=== PATIENT | female | born 1990 | race Asian ===

== ENCOUNTER 2024-10-04 10:55 | Outpatient (AMB) | payer BC, SELFPAY ==
--- NOTE | 2024-10-04 10:22 | AMB.OBINITIA ---
Vital Signs 10/04/24 10:28 Height 1.47 m Height Method Stated Weight 53.24 kg Weight Measurement Method Standing Scale BMI 24.5 BP 113/76 Blood Pressure Source Automatic Cuff Blood Pressure Location Right Upper Arm Position Sitting Respiration 17 Pulse 58 L Pulse Source Monitor Temp 98.0 F Temp Source Temporal Artery Scan Pulse Oximetry (%) 98 Oxygen Delivery Method Room Air Allergies/Home Meds Allergies & Medications Allergies No Known Allergies Allergy (Verified 10/04/24 10:29) Intake Visit Data Collection New Patient or Established: New Patient (never been to [facility]) Reason for Visit:: OBI Seen by Clinical Staff ONLY (RN/MA): No Supervisor Cereal Required: No Do You Feel Safe at Home: Yes Authorities Contacted: N/A PCP or OBGYN visit in last 3 months: No Hx Now: Yes Are you currently on any form of Control: No Last menstrual period: 07/27/24 Pain Present Currently: No Pain Scale Used: Leal-Andersen/Numerical Pain scale:: 0 Smoking Status Smoking Status: Never smoker Questionnaires Covid-19 Vaccine Questionnaire Has patient been vacinated for Covid-19 Have you been vacinated for Covid-19: No PHQ-9 PHQ-2 Over the last 2 weeks, how often have you been bothered by any of the following problems? 1. Little interest or pleasure in doing things: not at all 2. Feeling down, depressed, or hopeless: not at all Total score: 0 PHQ-9 3. Trouble falling or staying asleep, or sleeping too much: Not at all 4. Feeling tired or having little energy: Not at all 5. Poor appetite or overeating: Not at all 6. Feeling bad about yourself - or that you are a failure or have let yourself or your family down: Not at all 7. Trouble concentrating on things, such as reading the newspaper or watching television: Not at all 8. Moving or speaking so slowly that other people could have noticed? - Or the opposite - being so fidgety or restless that you have been moving around a lot more than usual: not at all 9. Thoughts that you would be better off or of hurting yourself in some way: Not at all Total score: 0 If you checked off any problems, how difficult have these problems made it for you to do your work, take care of things at home, or get along with other people?: not difficult at all Source: Developed by Drs. Robert Smith, Sanjuana Beckwith, Bret Sharpe and colleagues, with an educational douglas from [employer]. Depression screen completed yes Social History Living Situation History Marital Status: Lives With: Family Housing: House Housing Other:: Pt has 9-y/o girl from prev. spouse. Works in a [employer]. 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 Patient went natural. She went into labor at 37 weeks on her own. She stated labor was about 2-1/2 hours and she did not push long. She did not get an epidural and denied any problems with that or . That baby was from a previous relationship. Her new is with her today. He does not have any other children. 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 Last menstrual period was 07/27/24. She denies any past medical history or surgical history. 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 She did not push long and did not get an epidural she denies any complications. This was from another relationship. Other Relevant History: Patient has slightly elevated cholesterol. OB Initial Visit OB Flowsheet OB Flowsheet Initial Weight: Not Recorded Date <del>?</del> EGA Weight BP Alb Glu CTX Pres Fundal ht FHR Mov Dilation Station Effacement Hx Notes Visit Note 10/04/24 <del>?</del> 9w 6d 53.24 kg 113/76 10 154 New OB. Patient just had a Pap. Labs and official ultrasound ordered. Patient desires NIPT. Menstrual History Menstrual reliability: definite Flow: normal Menstrual regularity: regular Monthly: Yes Age at menarche: 10 On control pills at conception: Yes OB History : 2 Para: 1 Hx # Pregnancies: 0 Hx Total # of Abortions (Spontaneous & Elective): 0 # of Living Children: 1 Delivery History 1st : Child's name: JAN LEDEZMA date: 09/06[birth year] sex: female Gestational age at delivery (weeks): 37 Delivery type: vaginal weight (lbs): 2721.554 g weight (oz): 85.049 g Delivery complications: None History of depression before or after : No Infection History & Risk Evaluation History of STDs: none HIV risk evaluation: low risk Hepatitis B risk evaluation: low risk Patient or partner has history of Genital Herpes: No Varicella/chicken pox status: immunized Genetic Screening & History Genetic Screening/Teratology Counseling - Includes patient, baby's father, or anyone in either family with: 1. Patient's age 35 years or older as of estimated date of delivery: Yes 2. Thalassemia (Setswana, Italian, Mediterranean, or Background); MCV less than 80: No 3. Neural Tube Defect (Meningomyelocele, Spina Bifida, or Anencephaly): No 4. Congenital Heart Defect: No 5. Down Syndrome: No 6. Ian-Sachs (Ashkenazi Yazdanism, Cajun, Occitan [place]): No 7. Vishal Disease (Ashkenazi Yazdanism): No 8. Familial Dysautonomia (Ashkenazi Yazdanism): No 9. Sickle Cell Disease or Trait (): No 10. Hemophilia or other blood disorders: No 11. Muscular Dystrophy: No 12. Cystic Fibrosis: No 13. Pisek's Chorea: No 14. Mental Retardation/Autism: No 15. Other inherited genetic or chromosomal disorder: No 16. Maternal Metabolic Disorder (EG,TYPE 1 Diabetes, PKU): No 17. Patient or baby's father had a child with defects not listed above: No 18. Recurrent loss or a stillbirth: No 19. Medications (including supplements, vitamins, herbs or otc drugs)/illicit/recreational drugs/alcohol since last menstrual period: No 20. Any other: No Infection History 1. Live with someone with TB or exposed to TB: No 2. Rash or viral illness since last menstrual period: No 3. Hepatitis B,C: No Other (see comments) Source: [employer] Office Procedures OB Clinic LOC & Office Proc's Nursing/Assessment Patient Status: Initial/New Patient OB Clinic Nursing Assessment: Medication Reconciliation, Update PMH in EMR and Vital Signs OB Clinic Coordination of Care: Complex Care and Chronic Disease 1-5, Consent,records obtained, informed consent, Education Simp Pt/Fam, Lab and Imaging orders, Results/Orders obtained and Staff clarify orders Special Needs: Heart tones New Patient Charge New Patient Point Assignment: [id number] New Patient 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 Will refer to Dr. Arthur for level 2 ultrasound at 20 weeks. Additional Plan Follow Up: 4 Weeks
[2024-10-04 10:28] VITALS: BP 113/76; PULSE 58; RESP 17; TEMP 36.7; O2SAT 98; BMI 24.5
== END 2024-10-04 11:19 | disposition home or self-care (01) ==
PROVIDERS: PCP Family Medicine; Referring Provider Family Medicine; Supervising Provider Obstetrics & Gynecology; Visit Provider Obstetrics & Gynecology
DX: O09.521 Supervision of elderly multigravida, first trimester (principal); Z3A.09 9 weeks gestation of pregnancy
CPT/HCPCS: 99204; G0463

== ENCOUNTER → 2024-10-04 | Outpatient (CLI) | payer BC, SELFPAY ==
[2024-10-04 11:55] LABS: Collection Type, Urine Clean Catch; Misc Send Out* See Sep Rpt
[2024-10-04 12:09] LABS: Basophils % (Auto) 0 % (0-2.5); Eosinophils # (Auto) 0.1 Thou/mm3 (0.0-0.5); Eosinophils % (Auto) 1 % (0-10); Hematocrit 36.2 % (36.0-46.0); Hemoglobin 13.1 g/dL (12.0-16.0); Immature Granulocytes % (Auto) 1 % (0-0); Immature Granulocytes Auto 0.07 Thou/mm3 (0.00-0.00); Lymphocytes # (Auto) 2.8 Thou/mm3 (1.0-4.8); Lymphocytes % (Auto) 25 % (10-50); Mean Corpuscular HGB Conc 36.2 g/dl (31.0-37.0); Mean Corpuscular Hemoglobin 30.3 pg (25.0-35.0); Mean Corpuscular Volume 84 fL (80-100); Monocytes # (Auto) 0.5 Thou/mm3 (0.0-0.8); Monocytes % (Auto) 5 % (0-12); Neutrophils # (Auto) 7.9 Thou/mm3 (1.8-7.7); Neutrophils % (Auto) 69 % (37-80); Nucleated Red Blood Cell % 0 /100 WBC (0); Platelet Count 275 Thou/mm3 (140-440); RDW Standard Deviation 38.8 fL (36.4-46.3); Red Blood Count 4.33 Miln/mm3 (4.00-5.20); White Blood Count 11.5 Thou/mm3 (3.6-11.0)
[2024-10-04 12:22] LABS: Bilirubin,Urine Negative (Negative); Blood,Urine 1+ (Negative); Clarity,Urine Clear (Clear/Hazy); Color,Urine Lt-Yellow (Lt Yel-Yel); Glucose, Urine Negative (Negative); Ketones,Urine Trace (Negative); Leukocyte Esterase,Urine Negative (Negative); Nitrite,Urine Negative (Negative); PH,Urine 6.5 (5.0-7.0); Protein,Urine Negative (Neg - Trace); RBC,Urine 4 /hpf (0-3); Specific Gravity,Urine 1.012 (1.001-1.035); Squamous Epithelial Cell,Urine 1 /hpf (0-5); Urobilinogen,Urine Negative mg/dL (0.0-1.0); WBC,Urine 1 /hpf (0-5)
[2024-10-04 12:46] LABS: HIV (1&2) Antibody Rapid Non-Reactive
[2024-10-04 13:30] LABS: Hepatitis B Surface Antigen Non Reactive (Non React); Hepatitis C Antibody Non Reactive (Non React); Rubella, IgG Antibody Reactive (Immune)
[2024-10-04 15:29] LABS: Chlamydia trachomatis PCR Negative (Not Detect); Neisseria Gonorrhoeae DNA PCR Negative (Not Detect); Trichomonas Negative (Negative)
[2024-10-04 18:39] LABS: Syphilis Nonreactive (Nonreactive)
[2024-10-09 07:09] LABS: Sm Antibody* <1.0 NEG AI (<1.0 NEGATIVE)
== END | disposition home or self-care (01) ==
LOC: COPL 11:29
PROVIDERS: PCP Family Medicine; Referring Provider Obstetrics & Gynecology; Visit Provider Obstetrics & Gynecology
DX: Z01.89 Encounter for other specified special examinations (principal)
CPT/HCPCS: 36415; 81001; 85025; 86235; 86703; 86762; 86780; 86803; 86850; 86900; 86901; 87340; 87491; 87591; 87661

== ENCOUNTER → 2024-10-12 | Outpatient (CLI) | payer BC, SELFPAY ==
--- NOTE | 2024-10-12 15:00 | XR_ITS ---
Examination: OB Transvaginal ultrasound of the pelvis, complete Technique: Transvaginal sonographic images pelvis performed using milner scale imaging Exam date and time: October 12, 2024 1506 hours INDICATIONS: Supervision of normal FINDINGS: Uterus 10.9 cm, CRL 4.9 cm corresponds to 11 weeks 4 days gestational age Cardiac motion 169 bpm Right ovary 4.0 cm arterial flow 26 mm cyst Left ovary 3.0 cm arterial flow IMPRESSION: Viable intrauterine gestation 11 weeks 4 days.
== END | disposition home or self-care (01) ==
PROVIDERS: PCP Family Medicine; Referring Provider Obstetrics & Gynecology; Visit Provider Obstetrics & Gynecology
DX: Z34.91 Encounter for supervision of normal pregnancy, unspecified, first trimester (principal); Z3A.11 11 weeks gestation of pregnancy
CPT/HCPCS: 76817

== ENCOUNTER 2024-11-10 09:49 | Outpatient (AMB) | payer BC, SELFPAY ==
[2024-11-10 10:03] VITALS: BP 116/75; PULSE 86; RESP 17; TEMP 36.8; O2SAT 98; BMI 24.9
--- NOTE | 2024-11-10 10:03 | OBCLNT_ITS ---
Vital Signs 11/10/24 10:03 Height 1.47 m Height Method Measured Weight 54.091 kg Weight Measurement Method Standing Scale BMI 24.9 BP 116/75 Blood Pressure Source Automatic Cuff Blood Pressure Location Right Upper Arm Position Sitting Respiration 17 Pulse 86 Pulse Source Monitor Temp 98.3 F Temp Source Temporal Artery Scan Pulse Oximetry (%) 98 Oxygen Delivery Method Room Air Allergies/Home Meds Allergies & Medications Allergies No Known Allergies Allergy (Verified 11/10/24 10:04) Medication Reconciliation vits no.126-ferrous fum 28 mg iron-folic acid 800 mcg tablet (Classic ) tab PO 11/10/24 [History Confirmed 11/10/24] Intake Visit Data Collection New Patient or Established: Established Patient (seen at [facility] within 3 years) Reason for Visit:: OBC Consent obtained for Telemed Visit: No Seen by Clinical Staff ONLY (RN/MA): No Community Health Coordinator Required: No Do You Feel Safe at Home: Yes Authorities Contacted: N/A PCP or OBGYN visit in last 3 months: Yes Date of Last PCP or OBGYN visit: 10/04/24 Hx Now: Yes Are you currently on any form of Control: No Pain Present Currently: No Pain Scale Used: Leal-Andersen/Numerical Pain scale:: 0 Smoking Status Smoking Status: Never smoker Questionnaires Covid-19 Vaccine Questionnaire Has patient been vacinated for Covid-19 Have you been vacinated for Covid-19: Yes PHQ-9 PHQ-2 Over the last 2 weeks, how often have you been bothered by any of the following problems? 1. Little interest or pleasure in doing things: not at all PHQ-9 8. Moving or speaking so slowly that other people could have noticed? - Or the opposite - being so fidgety or restless that you have been moving around a lot more than usual: not at all Source: Developed by Drs. Robert Smith, Sanjuana Beckwith, Bret Sharpe and colleagues, with an educational douglas from [employer]. Social History Living Situation History Lives With: Family Housing: House Housing Other:: Pt has 9-y/o girl from prev. spouse. 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 Care OB Visit Log OB Flowsheet Initial Weight: 53 kg Date -?-?-?-?-?-?-?-?-?-?-?-?- EGA Weight BP Alb Glu CTX Pres Fundal ht FHR Mov Dilation Station Effacement Hx Notes Visit Note 10/04/24 -?-?-?-?-?-?-?-?-?-?-?-?- 9w 6d 53.24 kg (+240.404 g) 113/76 10 154 New OB. Patient just had a Pap. Labs and official ultrasound ordered. Patient desires NIPT. 11/10/24 -?-?-?-?-?-?-?-?-?-?-?-?- 15w 1d 54.091 kg (+1090.89 g) 116/75 15 132 absent No vaginal bleeding no cramping. labs reviewed. Declined NIPT. Will have level 2 ultrasound. KI Calculator Estimated Delivery Date Method Current WG Current Estimate 05/03/25 LMP (Certain) 15w 3d Other Estimates 04/30/25 Ultrasound #1 15w 6d Expected Delivery Route/Plan -0-0-1 x 1 9 years ago [facility] Labs: A+/Ab-/RI/RPR NR/HIV-/HepC-/HepBSag-/GC-/Chlam- /Urine cx-/Done at [facility] Specific Issue/Plans AMA: Declines NIPT For level 2 ultrasound Recommended baby aspirin Office Procedures OB Clinic LOC & Office Proc's Nursing/Assessment Patient Status: Established Patient OB Clinic Nursing Assessment: Medication Reconciliation, Update PMH in EMR and Vital Signs OB Clinic Coordination of Care: Complex Care/Chronic Disease 5 or more, Consent,records obtained, informed consent, Education Simp Pt/Fam and 4+ Authorizations needed Special Needs: Heart tones Established Patient Charge Established Patient Point Assignment: 140 Established Patient Point Charge: EP Level 5 (160-above) Assessment & Plan Diagnosis / Problem List (1) AMA (advanced maternal age) multigravida 35+: Status: Acute Qualifiers: Trimester: first trimester Qualified Code(s): O09.521 - Supervision of elderly multigravida, first trimester Assessment and Plan: Declined NIPT. Baby ASA. Level II US requested (2) : Status: Acute Qualifiers: Weeks of gestation: 14 weeks Qualified Code(s): Z3A.14 - 14 weeks gestation of
== END 2024-11-10 10:54 | disposition home or self-care (01) ==
LOC: HODSOBC 09:49
PROVIDERS: PCP Family Medicine; Referring Provider Family Medicine; Supervising Provider Obstetrics & Gynecology; Visit Provider Obstetrics & Gynecology
DX: O09.522 Supervision of elderly multigravida, second trimester (principal); Z3A.15 15 weeks gestation of pregnancy; Z53.29 Procedure and treatment not carried out because of patient's decision for other reasons
CPT/HCPCS: 99215; G0463

== ENCOUNTER 2024-12-11 14:59 | Outpatient (AMB) | payer BC, SELFPAY ==
[2024-12-11 15:02] VITALS: BP 119/73; PULSE 97; RESP 18; TEMP 36.8; O2SAT 97; BMI 26.0
--- NOTE | 2024-12-11 15:02 | OBCLNT_ITS ---
Vital Signs 12/11/24 15:02 Height 1.47 m Height Method Measured Weight 56.245 kg Weight Measurement Method Standing Scale BMI 26.0 BP 119/73 Blood Pressure Source Automatic Cuff Blood Pressure Location Left Upper Arm Position Sitting Respiration 18 Pulse 97 Pulse Source Monitor Temp 98.2 F Temp Source Oral Pulse Oximetry (%) 97 Oxygen Delivery Method Room Air Allergies/Home Meds Allergies & Medications Allergies No Known Allergies Allergy (Verified 12/11/24 15:08) Medication Reconciliation vits no.126-ferrous fum 28 mg iron-folic acid 800 mcg tablet (Classic ) tab PO 11/10/24 [History Confirmed 12/11/24] Intake Visit Data Collection New Patient or Established: Established Patient (seen at [facility] within 3 years) Reason for Visit:: CARE Seen by Clinical Staff ONLY (RN/MA): No Tester Operator Required: No Do You Feel Safe at Home: Yes Authorities Contacted: N/A PCP or OBGYN visit in last 3 months: Yes Hx Now: Yes Are you currently on any form of Control: No Pain Present Currently: No Pain Scale Used: Leal-Andersen/Numerical Pain scale:: 0 Smoking Status Smoking Status: Never smoker Questionnaires Covid-19 Vaccine Questionnaire Has patient been vacinated for Covid-19 Have you been vacinated for Covid-19: Yes PHQ-9 PHQ-2 Over the last 2 weeks, how often have you been bothered by any of the following problems? 1. Little interest or pleasure in doing things: not at all 2. Feeling down, depressed, or hopeless: not at all Total score: 0 PHQ-9 3. Trouble falling or staying asleep, or sleeping too much: Not at all 4. Feeling tired or having little energy: Not at all 5. Poor appetite or overeating: Not at all 6. Feeling bad about yourself - or that you are a failure or have let yourself or your family down: Not at all 7. Trouble concentrating on things, such as reading the newspaper or watching television: Not at all 8. Moving or speaking so slowly that other people could have noticed? - Or the opposite - being so fidgety or restless that you have been moving around a lot more than usual: not at all 9. Thoughts that you would be better off or of hurting yourself in some way: Not at all Total score: 0 Source: Developed by Drs. Robert Smith, Sanjuana Beckwith, Bret Sharpe and colleagues, with an educational douglas from [employer]. 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 spouse. 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 Patient just had a Pap. Labs and official ultrasound ordered. Patient desires NIPT. 11/10/24 -?-?-?-?-?-?-?-?-?-?-?-?- 15w 1d 54.091 kg (+1090.89 g) 116/75 15 132 absent No vaginal bleeding no cramping. labs reviewed. Declined NIPT. Will have level 2 ultrasound. 12/11/24 -?-?-?-?-?-?-?-?-?-?-?-?- 19w 4d 56.245 kg (+3245.454 g) 119/73 unknown 19 145 active No vaginal bleeding or loss of fluids. Patient feels flutters Has level 2 ultrasound scheduled later this week. Will have a gender reveal. Will place gender in an envelope. 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 This is his first baby. 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 Office Procedures OB Clinic LOC & Office Proc's Nursing/Assessment Patient Status: Established Patient OB Clinic Nursing Assessment: Medication Reconciliation, Update PMH in EMR and Vital Signs OB Clinic Coordination of Care: AMA, Complex Care and Chronic Disease 1-5, Consent,records obtained, informed consent, Education Simp Pt/Fam, Lab and Imaging orders, Results/Orders obtained and Staff clarify orders Special Needs: Heart tones Established Patient Charge Established Patient Point Assignment: 155 Established Patient Point Charge: EP Level 4 (120-155) Assessment & Plan Diagnosis / Problem List (1) AMA (advanced maternal age) multigravida 35+: Status: Acute Qualifiers: Trimester: first trimester Qualified Code(s): O09.521 - Supervision of elderly multigravida, first trimester Plan: Declined NIPT. Has level [address] Arthur. Baby aspirin. (2) : Status: Acute Qualifiers: Weeks of gestation: 19 weeks Qualified Code(s): Z3A.19 - 19 weeks gestation of Additional Plan Follow Up: 4 Weeks
== END 2024-12-11 16:26 | disposition home or self-care (01) ==
LOC: HODSOBC 14:59
PROVIDERS: Supervising Provider Obstetrics & Gynecology; Visit Provider Obstetrics & Gynecology
DX: O09.522 Supervision of elderly multigravida, second trimester (principal); Z3A.19 19 weeks gestation of pregnancy; Z53.29 Procedure and treatment not carried out because of patient's decision for other reasons
CPT/HCPCS: 99214; G0463

== ENCOUNTER 2025-01-12 14:54 | Outpatient (AMB) | payer BC, SELFPAY ==
--- NOTE | 2025-01-12 15:07 | OBCLNT_ITS ---
Vital Signs 01/12/25 15:08 Height 1.47 m Height Method Stated Weight 57.323 kg Weight Measurement Method Standing Scale BMI 26.5 BP 118/76 Blood Pressure Source Automatic Cuff Blood Pressure Location Left Upper Arm Position Sitting Respiration 18 Pulse 104 H Pulse Source Monitor Temp 98.1 F Temp Source Oral Pulse Oximetry (%) 97 Oxygen Delivery Method Room Air Allergies/Home Meds Allergies & Medications Allergies No Known Allergies Allergy (Verified 01/12/25 15:08) Medication Reconciliation vits no.126-ferrous fum 28 mg iron-folic acid 800 mcg tablet (Classic ) tab PO 11/10/24 [History Confirmed 01/12/25] Intake Visit Data Collection New Patient or Established: Established Patient (seen at [facility] within 3 years) Reason for Visit:: CARE Seen by Clinical Staff ONLY (RN/MA): No Soa Architect Required: No Do You Feel Safe at Home: Yes Authorities Contacted: N/A PCP or OBGYN visit in last 3 months: Yes Hx Now: Yes Are you currently on any form of Control: No Pain Present Currently: No Pain Scale Used: Leal-Andersen/Numerical Pain scale:: 0 Smoking Status Smoking Status: Never smoker Questionnaires Covid-19 Vaccine Questionnaire Has patient been vacinated for Covid-19 Have you been vacinated for Covid-19: Yes PHQ-9 PHQ-2 Over the last 2 weeks, how often have you been bothered by any of the following problems? 1. Little interest or pleasure in doing things: not at all 2. Feeling down, depressed, or hopeless: not at all Total score: 0 PHQ-9 3. Trouble falling or staying asleep, or sleeping too much: Not at all 4. Feeling tired or having little energy: Not at all 5. Poor appetite or overeating: Not at all 6. Feeling bad about yourself - or that you are a failure or have let yourself or your family down: Not at all 7. Trouble concentrating on things, such as reading the newspaper or watching television: Not at all 8. Moving or speaking so slowly that other people could have noticed? - Or the opposite - being so fidgety or restless that you have been moving around a lot more than usual: not at all 9. Thoughts that you would be better off or of hurting yourself in some way: Not at all Total score: 0 Source: Developed by Drs. Robert Smith, Sanjuana Beckwith, Bret Sharpe and colleagues, with an educational douglas from [employer]. 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 spouse. 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 Patient just had a Pap. Labs and official ultrasound ordered. Patient desires NIPT. 11/10/24 -?-?-?-?-?-?-?-?-?-?-?-?- 15w 1d 54.091 kg (+1090.89 g) 116/75 15 132 absent No vaginal bleeding no cramping. labs reviewed. Declined NIPT. Will have level 2 ultrasound. 12/11/24 -?-?-?-?-?-?-?-?-?-?-?-?- 19w 4d 56.245 kg (+3245.454 g) 119/73 unknown 19 145 active No vaginal bleeding or loss of fluids. Patient feels flutters Has level 2 ultrasound scheduled later this week. Will have a gender reveal. Will place gender in an envelope. 01/12/25 -?-?-?-?-?-?-?-?-?-?-?-?- 24w 1d 57.323 kg (+4322.736 g) 118/76 24 134 active No bleeding or loss of fluids. No pressure. Ordered GCT. KI Calculator Estimated Delivery Date Method Current WG Current Estimate 05/03/25 LMP (Certain) 24w 1d Other Estimates 04/30/25 Ultrasound #1 24w 4d Expected Delivery Route/Plan -0-0-1 x one 9 years ago (a girl) Last baby 6 lbs 3 oz and rapid labor, about 2 hours from when she was admitted to the hospital. No time for epidural. New FOB this [facility] Labs: A+/Ab-/RI/RPR NR/HIV-/HepC-/HepBSag-/GC-/Chlam- /Urine cx-/Done at [facility] between her Specific Issue/Plans AMA: Declines NIPT For level 2 ultrasound Level II US WNL Found out this baby is a boy Notes Visit Date: 01/12/25 Last Updated by: Gracie Kline (OB Clinic)MD Ultrasound Dr. Arthur 12/19/2024 reviewed with patient, performed for AMA. Normal level 2 ultrasound. Baby is 63rd percentile EDC by ultrasound 05/05/2025. 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 This is his first baby. 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 Office Procedures OB Clinic LOC & Office Proc's Nursing/Assessment Patient Status: Established Patient OB Clinic Nursing Assessment: Medication Reconciliation, Update PMH in EMR and Vital Signs OB Clinic Coordination of Care: AMA, Complex Care and Chronic Disease 1-5, Consent,records obtained, informed consent, Education Simp Pt/Fam, Lab and Imaging orders, Results/Orders obtained and Staff clarify orders Special Needs: Heart tones Established Patient Charge Established Patient Point Assignment: 155 Established Patient Point Charge: EP Level 4 (120-155) Assessment & Plan Diagnosis / Problem List (1) AMA (advanced maternal age) multigravida 35+: Status: Acute Qualifiers: Trimester: first trimester Qualified Code(s): O09.521 - Supervision of elderly multigravida, first trimester (2) : Status: Acute Qualifiers: Weeks of gestation: 24 weeks Qualified Code(s): Z3A.24 - 24 weeks gestation of
[2025-01-12 15:08] VITALS: BP 118/76; PULSE 104; RESP 18; TEMP 36.7; O2SAT 97; BMI 26.5
== END 2025-01-12 16:13 | disposition home or self-care (01) ==
LOC: HODSOBC 14:54
PROVIDERS: Supervising Provider Obstetrics & Gynecology; Visit Provider Obstetrics & Gynecology
DX: O09.522 Supervision of elderly multigravida, second trimester (principal); Z3A.24 24 weeks gestation of pregnancy; Z53.29 Procedure and treatment not carried out because of patient's decision for other reasons
CPT/HCPCS: 99214; G0463

== ENCOUNTER → 2025-01-15 | Outpatient (CLI) | payer BC, SELFPAY ==
[2025-01-15 11:38] LABS: Glucose,1 Hour PP 50gm Dose 143 mg/dL (80-140)
== END | disposition home or self-care (01) ==
LOC: COPL 08:44
PROVIDERS: PCP Family Medicine; Referring Provider Obstetrics & Gynecology; Visit Provider Obstetrics & Gynecology
DX: O09.522 Supervision of elderly multigravida, second trimester (principal); Z3A.24 24 weeks gestation of pregnancy
CPT/HCPCS: 36415; 82950

== ENCOUNTER 2025-02-09 15:26 | Outpatient (AMB) | payer BC, SELFPAY ==
--- NOTE | 2025-02-09 15:35 | OBCLNT_ITS ---
Vital Signs 02/09/25 15:38 Height 1.47 m Height Method Stated Weight 59.08 kg Weight Measurement Method Standing Scale BMI 27.3 BP 104/69 Blood Pressure Source Automatic Cuff Blood Pressure Location Left Upper Arm Position Sitting Respiration 18 Pulse 102 H Pulse Source Monitor Temp 97.2 F Temp Source Oral Pulse Oximetry (%) 98 Oxygen Delivery Method Room Air Allergies/Home Meds Allergies & Medications Allergies No Known Allergies Allergy (Verified 02/09/25 15:39) Medication Reconciliation vits no.126-ferrous fum 28 mg iron-folic acid 800 mcg tablet (Classic ) tab PO 11/10/24 [History Confirmed 02/09/25] Intake Visit Data Collection New Patient or Established: Established Patient (seen at [facility] within 3 years) Reason for Visit:: OBC Seen by Clinical Staff ONLY (RN/MA): No News Videotape Editor Required: No Do You Feel Safe at Home: Yes Authorities Contacted: N/A PCP or OBGYN visit in last 3 months: Yes ([id number]) Date of Last PCP or OBGYN visit: 01/12/25 Hx Now: Yes Are you currently on any form of Control: No Pain Present Currently: No Pain Scale Used: Leal-Andersen/Numerical Pain scale:: 0 Smoking Status Smoking Status: Never smoker Questionnaires Covid-19 Vaccine Questionnaire Has patient been vacinated for Covid-19 Have you been vacinated for Covid-19: Yes PHQ-9 PHQ-2 Over the last 2 weeks, how often have you been bothered by any of the following problems? 1. Little interest or pleasure in doing things: not at all 2. Feeling down, depressed, or hopeless: not at all Total score: 0 PHQ-9 3. Trouble falling or staying asleep, or sleeping too much: Not at all 4. Feeling tired or having little energy: Not at all 5. Poor appetite or overeating: Not at all 6. Feeling bad about yourself - or that you are a failure or have let yourself or your family down: Not at all 7. Trouble concentrating on things, such as reading the newspaper or watching television: Not at all 8. Moving or speaking so slowly that other people could have noticed? - Or the opposite - being so fidgety or restless that you have been moving around a lot more than usual: not at all 9. Thoughts that you would be better off or of hurting yourself in some way: Not at all Total score: 0 If you checked off any problems, how difficult have these problems made it for you to do your work, take care of things at home, or get along with other people?: not difficult at all Source: Developed by Drs. Robert Smith, Sanjuana Beckwith, Bret Sharpe and colleagues, with an educational douglas from [employer]. 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 spouse. 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 Patient just had a Pap. Labs and official ultrasound ordered. Patient desires NIPT. 11/10/24 -?-?-?-?-?-?-?-?-?-?-?-?- 15w 1d 54.091 kg (+1090.89 g) 116/75 15 132 absent No vaginal bleeding no cramping. labs reviewed. Declined NIPT. Will have level 2 ultrasound. 12/11/24 -?-?-?-?-?-?-?-?-?-?-?-?- 19w 4d 56.245 kg (+3245.454 g) 119/73 unknown 19 145 active No vaginal bleeding or loss of fluids. Patient feels flutters Has level 2 ultrasound scheduled later this week. Will have a gender reveal. Will place gender in an envelope. 01/12/25 -?-?-?-?-?-?-?-?-?-?-?-?- 24w 1d 57.323 kg (+4322.736 g) 118/76 24 134 active No bleeding or loss of fluids. No pressure. Ordered GCT. 02/09/25 -?-?-?-?-?-?-?-?-?-?-?-?- 28w 1d 59.08 kg (+6080.406 g) 104/69 unknown 28 145 active No VB or LOF. Good FM Severe r ight carpal tunnel. WEaring brace. Referred to Jennifer Duron OT, Brian PT. KI Calculator Estimated Delivery Date Method Current WG Current Estimate 05/03/25 LMP (Certain) 28w 6d Other Estimates 04/30/25 Ultrasound #1 29w 2d Expected Delivery Route/Plan -0-0-1 x one 9 years ago (a girl) Last baby 6 lbs 3 oz and rapid labor, about 2 hours from when she was admitted to the hospital. No time for epidural. New FOB this [facility] Labs: A+/Ab-/RI/RPR NR/HIV-/HepC-/HepBSag-/GC-/Chlam- /Urine cx-/Done at [facility] Elevated GCT 143 (01/15) at [facility]. Ordered GTT. Pt aware Specific Issue/Plans AMA: Declines NIPT For level 2 ultrasound Level II US WNL Found out this baby is a boy Notes Visit Date: 02/09/25 Last Updated by: Gracie Kline ([facility])MD Severe carpal tunnel. 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 Note written for accommodations. Wearing a brace. Refer to Hand OT in [place]. Visit Date: 01/12/25 Last Updated by: Gracie Kline ([facility])MD Ultrasound Dr. Arthur 12/19/2024 reviewed with patient, performed for AMA. Normal level 2 ultrasound. Baby is 63rd percentile EDC by ultrasound 05/05/2025. Visit Date: 12/11/24 Last Updated by: Gracie Kline ([facility])MD Patient works in a [employer]. 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 This is his first baby. He is a golf pro at the [employer] Office Procedures OBC Clinic LOC & Office Proc's Nursing/Assessment Patient Status: Established Patient OB Clinic Nursing Assessment: Medication Reconciliation, Update PMH in EMR and Vital Signs OB Clinic Coordination of Care: Consent,records obtained, informed consent, Education Simp Pt/Fam, Lab and Imaging orders, Results/Orders obtained and Staff clarify orders Special Needs: Heart tones Established Patient Charge Established Patient Point Assignment: 110 Established Patient Point Charge: EP Level 3 (80-115)
[2025-02-09 15:38] VITALS: BP 104/69; PULSE 102; RESP 18; TEMP 36.2; O2SAT 98; BMI 27.3
== END 2025-02-09 16:09 | disposition home or self-care (01) ==
LOC: HODSOBC 15:26
PROVIDERS: Supervising Provider Obstetrics & Gynecology; Visit Provider Obstetrics & Gynecology
DX: O09.523 Supervision of elderly multigravida, third trimester (principal); O09.893 Supervision of other high risk pregnancies, third trimester; O99.353 Diseases of the nervous system complicating pregnancy, third trimester; G56.01 Carpal tunnel syndrome, right upper limb; Z3A.28 28 weeks gestation of pregnancy
CPT/HCPCS: 99213; G0463

== ENCOUNTER 2025-02-16 16:57 | Observation (INO) | payer BC, SELFPAY ==
[2025-02-16] VITALS (9 sets, daily range): BP systolic 126; BP diastolic 76; PULSE 79–93; RESP 18–99; TEMP 36.8; O2SAT 97–100; BMI 27.5
[2025-02-16 17:23] LABS: Collection Type, Urine Clean Catch
[2025-02-16 17:30] LABS: Bilirubin,Urine Negative (Negative); Blood,Urine Trace (Negative); Clarity,Urine Clear (Clear/Hazy); Color,Urine Colorless (Lt Yel-Yel); Glucose, Urine Negative (Negative); Ketones,Urine Negative (Negative); Leukocyte Esterase,Urine Negative (Negative); Nitrite,Urine Negative (Negative); PH,Urine 6.5 (5.0-7.0); Protein,Urine Negative (Neg - Trace); RBC,Urine 3 /hpf (0-3); Specific Gravity,Urine 1.007 (1.001-1.035); Squamous Epithelial Cell,Urine 1 /hpf (0-5); Urobilinogen,Urine Negative mg/dL (0.0-1.0); WBC,Urine 1 /hpf (0-5)
--- NOTE | 2025-02-16 17:43 | XR_ITS ---
Examination: Complete OB ultrasound greater than 14 weeks Date and time of exam: February 16, 2025, 1854 hours INDICATIONS: Pelvic pressure, labor evaluation, diagnosis labor Findings: Viable intrauterine single fetus with single amniotic sac presentation cephalic Cardiac motion 130 bpm Placenta fundal grade 1 Umbilical cord insertion seen Amniotic fluid index 12.8 cm spine anterior Cervix 2.6 cm Right ovary obscured by bowel gas Left ovary 2.3 cm arterial flow. Composite estimated gestational age based on BPD, head circumference, abdominal circumference, femur length is 29 weeks 1 day Estimated weight 1347 g. Survey of intracranial anatomy, spinal anatomy, abdominal anatomy, four-chamber heart performed with no abnormalities identified. Impression: Viable intrauterine gestation in cephalic presentation Estimated gestational age 29 weeks 1 day Estimated weight 1346.8 g.
[2025-02-16] MEDS: NITROFURANTOIN MACRO 100 MG CAPSULE PO (17:57)
== END 2025-02-16 21:18 | disposition home or self-care (01) ==
PROVIDERS: Admitting Provider Obstetrics & Gynecology; PCP Family Medicine; Visit Provider Obstetrics & Gynecology
DX: O26.893 Other specified pregnancy related conditions, third trimester (principal); Z3A.29 29 weeks gestation of pregnancy; R10.30 Lower abdominal pain, unspecified
CPT/HCPCS: 59025; 59899; 76805; 81001; 87086; A9270

== ENCOUNTER 2025-02-19 08:27 | Outpatient (AMB) | payer BC, SELFPAY ==
[2025-02-19 08:48] VITALS: BP 130/85; PULSE 102; RESP 18; TEMP 36.2; O2SAT 98
--- NOTE | 2025-02-19 08:48 | OBCLNT_ITS ---
Vital Signs 02/19/25 08:48 Weight 59.534 kg Weight Measurement Method Standing Scale BP 130/85 H Blood Pressure Source Automatic Cuff Blood Pressure Location Left Upper Arm Position Sitting Respiration 18 Pulse 102 H Pulse Source Monitor Temp 97.2 F Temp Source Oral Pulse Oximetry (%) 98 Oxygen Delivery Method Room Air Allergies/Home Meds Allergies & Medications Allergies No Known Allergies Allergy (Verified 02/19/25 08:50) Medication Reconciliation vits no.126-ferrous fum 28 mg iron-folic acid 800 mcg tablet (Classic ) tab PO 11/10/24 [History Confirmed 02/19/25] hydrocortisone acetate 25 mg rectal suppository (Anusol-HC) 25 mg UT QDAY 2 weeks #24 ea 02/17/25 [Rx Confirmed 02/19/25] nitrofurantoin monohydrate/macrocrystals 100 mg capsule (Macrobid) 100 mg PO BID 7 days #14 caps 02/17/25 [Rx Confirmed 02/19/25] Intake Visit Data Collection New Patient or Established: Established Patient (seen at [facility] within 3 years) Reason for Visit:: OBC Seen by Clinical Staff ONLY (RN/MA): No Administrative Director Required: No Do You Feel Safe at Home: Yes Authorities Contacted: N/A PCP or OBGYN visit in last 3 months: Yes Date of Last PCP or OBGYN visit: 02/16/25 Hx Now: Yes Are you currently on any form of Control: No Pain Present Currently: No Pain Scale Used: Leal-Andersen/Numerical Pain scale:: 0 Smoking Status Smoking Status: Never smoker Immunizations Flu Vaccine in the Last 12 Months: No Flu Vaccine Exclusion Criteria: No Exclusion Criteria Questionnaires Covid-19 Vaccine Questionnaire Has patient been vacinated for Covid-19 Have you been vacinated for Covid-19: Yes PHQ-9 PHQ-2 Over the last 2 weeks, how often have you been bothered by any of the following problems? 1. Little interest or pleasure in doing things: not at all 2. Feeling down, depressed, or hopeless: not at all Total score: 0 PHQ-9 3. Trouble falling or staying asleep, or sleeping too much: Not at all 4. Feeling tired or having little energy: Not at all 5. Poor appetite or overeating: Not at all 6. Feeling bad about yourself - or that you are a failure or have let yourself or your family down: Not at all 7. Trouble concentrating on things, such as reading the newspaper or watching television: Not at all 8. Moving or speaking so slowly that other people could have noticed? - Or the opposite - being so fidgety or restless that you have been moving around a lot more than usual: not at all 9. Thoughts that you would be better off or of hurting yourself in some way: Not at all Total score: 0 If you checked off any problems, how difficult have these problems made it for you to do your work, take care of things at home, or get along with other people?: not difficult at all Source: Developed by Drs. Robert Smith, Sanjuana Beckwith, Bret Sharpe and colleagues, with an educational douglas from [employer]. Depression screen completed yes Social History Living Situation History Marital Status: Single Lives With: Family Housing: House Housing Other:: Pt has 9-y/o girl from prev. spouse. Works in a [employer]. 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 Patient just had a Pap. Labs and official ultrasound ordered. Patient desires NIPT. 11/10/24 -?-?-?-?-?-?-?-?-?-?-?-?- 15w 1d 54.091 kg (+1090.89 g) 116/75 15 132 absent No vaginal bleeding no cramping. labs reviewed. Declined NIPT. Will have level 2 ultrasound. 12/11/24 -?-?-?-?-?-?-?-?-?-?-?-?- 19w 4d 56.245 kg (+3245.454 g) 119/73 unknown 19 145 active No vaginal bleeding or loss of fluids. Patient feels flutters Has level 2 ultrasound scheduled later this week. Will have a gender reveal. Will place gender in an envelope. 01/12/25 -?-?-?-?-?-?-?-?-?-?-?-?- 24w 1d 57.323 kg (+4322.736 g) 118/76 24 134 active No bleeding or loss of fluids. No pressure. Ordered GCT. 02/09/25 -?-?-?-?-?-?-?-?-?-?-?-?- 28w 1d 59.08 kg (+6080.406 g) 104/69 unknown 28 145 active No VB or LOF. Good FM Severe right carpal tunnel. WEaring brace. Referred to Jennifer Duron OT, Dash PT. 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 No time for epidural. New FOB this [facility] Labs: A+/Ab-/RI/RPR NR/HIV-/HepC-/HepBSag-/GC-/Chlam- /Urine cx-/Done at [facility] Elevated GCT 143 (01/15) at [facility]. Ordered GTT. Pt aware Specific Issue/Plans AMA: Declines NIPT For level 2 ultrasound Level II US WNL Found out this baby is a boy Notes Visit Date: 02/09/25 Last Updated by: Gracie Kline ([facility])MD Severe carpal tunnel. 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 Note written for accommodations. Wearing a brace. Refer to Hand OT in [place]. Visit Date: 01/12/25 Last Updated by: Gracie Kline ([facility])MD Ultrasound Dr. Arthur 12/19/2024 reviewed with patient, performed for AMA. Normal level 2 ultrasound. Baby is 63rd percentile EDC by ultrasound 05/05/2025. Visit Date: 12/11/24 Last Updated by: Gracie Kline ([facility])MD Patient works in a [employer]. 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 Zuleima crowe is a new father the baby. This is his first baby. He is a golf pro at the [employer]. Exam Narrative Physical exam: see documentation feels tired , she is on her feet at the labs cervical length on is 2.6 cm and cephalic presentation last baby born at 37 weeks start disability now / return to work possible on 06/24/2025 3 hour GTT ordered On macrobid for possible UTI Office Procedures OBC Clinic LOC & Office Proc's Nursing/Assessment Patient Status: Established Patient OB Clinic Nursing Assessment: Medication Reconciliation, Update PMH in EMR and Vital Signs OB Clinic Coordination of Care: Consent,records obtained, informed consent, Education Simp Pt/Fam, Lab and Imaging orders, Results/Orders obtained and Staff clarify orders Special Needs: Heart tones Established Patient Charge Established Patient Point Assignment: 110 Established Patient Point Charge: EP Level 3 (80-115) Assessment & Plan Additional Plan feels tired , she is on her feet at the labs cervical length on is 2.6 cm and cephalic presentation last baby born at 37 weeks start disability now / return to work possible on 06/24/2025 3 hour GTT ordered On macrobid for possible UTI Follow Up: 2 Weeks Forms: Patient Portal Information Patient Portal Info Letter
== END 2025-02-19 09:34 | disposition home or self-care (01) ==
LOC: HODSOBC 08:27
PROVIDERS: Supervising Provider Obstetrics & Gynecology; Visit Provider Obstetrics & Gynecology
DX: O09.523 Supervision of elderly multigravida, third trimester (principal); O09.893 Supervision of other high risk pregnancies, third trimester; O99.353 Diseases of the nervous system complicating pregnancy, third trimester; G56.01 Carpal tunnel syndrome, right upper limb; Z3A.29 29 weeks gestation of pregnancy
CPT/HCPCS: 99213; G0463

== ENCOUNTER → 2025-02-21 | Outpatient (CLI) | payer BC, SELFPAY ==
[2025-02-21 09:35] LABS: Glucose,Fasting Gestational 80 mg/dL (70-120)
[2025-02-21 10:24] LABS: Glucose 1 Hour, Gest 185 mg/dL (50-190)
[2025-02-21 10:57] LABS: Glucose 2 Hour,Gest 187 mg/dL (50-165)
[2025-02-21 12:13] LABS: Glucose 3 Hour, Gest 151 mg/dL (50-145)
== END | disposition home or self-care (01) ==
PROVIDERS: PCP Family Medicine; Referring Provider Obstetrics & Gynecology; Visit Provider Obstetrics & Gynecology
DX: Z34.90 Encounter for supervision of normal pregnancy, unspecified, unspecified trimester (principal)
CPT/HCPCS: 36415; 82951; 82952

== ENCOUNTER 2025-03-13 13:38 | Outpatient (AMB) | payer BC, SELFPAY ==
[2025-03-13 13:45] VITALS: BP 113/78; PULSE 91; RESP 18; TEMP 36.8; O2SAT 98; BMI 27.8
--- NOTE | 2025-03-13 13:45 | OBCLNT_ITS ---
Vital Signs 03/13/25 13:45 Height 1.47 m Height Method Stated Weight 60.101 kg Weight Measurement Method Standing Scale BMI 27.8 BP 113/78 Blood Pressure Source Automatic Cuff Blood Pressure Location Left Upper Arm Position Sitting Respiration 18 Pulse 91 Pulse Source Monitor Temp 98.3 F Temp Source Oral Pulse Oximetry (%) 98 Oxygen Delivery Method Room Air Allergies/Home Meds Allergies & Medications Allergies No Known Allergies Allergy (Verified 03/13/25 13:56) Medication Reconciliation vits no.126-ferrous fum 28 mg iron-folic acid 800 mcg tablet (Classic ) tab PO 11/10/24 [History Confirmed 03/13/25] blood sugar diagnostic (Blood Glucose Test strips) #10 ea 03/14/25 [Rx] blood-glucose meter #1 ea 03/14/25 [Rx] lancets #100 ea 03/14/25 [Rx] Immunizations Immunizations Flu Vaccine in the Last 12 Months: No Flu Vaccine Exclusion Criteria: Refused by Patient Care OB Visit Log OB Flowsheet Initial Weight: 53 kg Date -?-?-?-?-?-?-?-?-?-?-?-?- EGA Weight BP Alb Glu CTX Pres Fundal ht FHR Mov Dilation Station Effacement Hx Notes Visit Note 10/04/24 -?-?-?-?-?-?-?-?-?-?-?-?- 9w 6d 53.24 kg (+240.404 g) 113/76 10 154 New OB. Patient just had a Pap. Labs and official ultrasound ordered. Patient desires NIPT. 11/10/24 -?-?-?-?-?-?-?-?-?-?-?-?- 15w 1d 54.091 kg (+1090.89 g) 116/75 15 132 absent No vaginal bleeding no cramping. labs reviewed. Declined NIPT. Will have level 2 ultrasound. 12/11/24 -?-?-?-?-?-?-?-?-?-?-?-?- 19w 4d 56.245 kg (+3245.454 g) 119/73 unknown 19 145 active No vaginal bleeding or loss of fluids. Patient feels flutters Has level 2 ultrasound scheduled later this week. Will have a gender reveal. Will place gender in an envelope. 01/12/25 -?-?-?-?-?-?-?-?-?-?-?-?- 24w 1d 57.323 kg (+4322.736 g) 118/76 24 134 active No bleeding or loss of fluids. No pressure. Ordered GCT. 02/09/25 -?-?-?-?-?-?-?-?-?-?-?-?- 28w 1d 59.08 kg (+6080.406 g) 104/69 unknown 28 145 active No VB or LOF. Good FM Severe right carpal tunnel. WEaring brace. Referred to Jennifer Duron OT, Dash PT. 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 light duty is not working for her at the same time she also has carpal tunnel syndrome on her right arm and is using a cast for help she had a prior baby at 37 weeks so she is at high risk for delivery and will be placed on disability for the rest of the follow up in 2 weeks 03/13/25 -?-?-?-?-?-?-?-?-?-?-?-?- 32w 5d 60.101 kg (+7100.989 g) 113/78 cephalic 32 139 active 32.5 weeks today KI Calculator Estimated Delivery Date Method Current WG Current Estimate 05/03/25 LMP (Certain) 32w 6d Other Estimates 04/30/25 Ultrasound #1 33w 2d Expected Delivery Route/Plan -0-0-1 x one 9 years ago (a girl) Last baby 6 lbs 3 oz and rapid labor, about 2 hours from when she was admitted to the hospital. No time for epidural. New FOB this [facility] Labs: A+/Ab-/RI/RPR NR/HIV-/HepC-/HepBSag-/GC-/Chlam- /Urine cx-/Done at [facility] Elevated GCT 143 (01/15) at [facility]. Ordered GTT. Pt aware Specific Issue/Plans AMA: Declines NIPT For level 2 ultrasound Level II US WNL Found out this baby is a boy Notes Visit Date: 03/13/25 Last Updated by: Blanca Nash MD 3 hour GTT c/w GDM and she is going to start keeping a sugar log declines flu vaccine / follow up in 2 to 2.5 weeks Glucometer supplies and glucometer called in Dietary advice given Visit Date: 02/09/25 Last Updated by: Gracie Kline ([facility])MD Severe carpal tunnel. 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 Note written for accommodations. Wearing a brace. Refer to Hand OT in [place]. Visit Date: 01/12/25 Last Updated by: Gracie Kline ([facility])MD Ultrasound Dr. Arthur 12/19/2024 reviewed with patient, performed for AMA. Normal level 2 ultrasound. Baby is 63rd percentile EDC by ultrasound 05/05/2025. 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 This is his first baby. He is a golf pro at the [employer]. Office Procedures OBC Clinic LOC & Office Proc's Nursing/Assessment Patient Status: Established Patient OB Clinic Nursing Assessment: Medication Reconciliation, Update PMH in EMR and Vital Signs OB Clinic Coordination of Care: AMA, Complex Care and Chronic Disease 1-5, Consent,records obtained, informed consent, Education Simp Pt/Fam, 1 Ins Authorization, Lab and Imaging orders, Results/Orders obtained and Staff clarify orders Special Needs: Heart tones Established Patient Charge Established Patient Point Assignment: 170 Established Patient Point Charge: EP Level 5 (160-above) Assessment & Plan Diagnosis / Problem List (1) AMA (advanced maternal age) multigravida 35+: Status: Acute Qualifiers: Trimester: first trimester Qualified Code(s): O09.521 - Supervision of elderly multigravida, first trimester (2) : Status: Acute Qualifiers: Weeks of gestation: 24 weeks Qualified Code(s): Z3A.24 - 24 weeks gestation of (3) GDM (gestational diabetes mellitus), class A1: Status: Acute Assessment and Plan: 34 years old with previous and now with GDM / she is on maternity disability as she cannot work due to carpel tunnel syndrome / started on diet and checking her blood sugars / she declined flu vaccine . Sheis 32.5 weeks today / plan follow up in 2 weeks / based on her sugar log will start NST testing from 36 weeks or earlier
== END 2025-03-13 14:52 | disposition home or self-care (01) ==
LOC: HODSOBC 13:38
PROVIDERS: Supervising Provider Obstetrics & Gynecology; Visit Provider Obstetrics & Gynecology
DX: O09.523 Supervision of elderly multigravida, third trimester (principal); O09.893 Supervision of other high risk pregnancies, third trimester; O24.419 Gestational diabetes mellitus in pregnancy, unspecified control; O99.353 Diseases of the nervous system complicating pregnancy, third trimester; G56.01 Carpal tunnel syndrome, right upper limb; Z3A.32 32 weeks gestation of pregnancy; Z28.21 Immunization not carried out because of patient refusal
CPT/HCPCS: 99215; G0463

== ENCOUNTER 2025-03-27 13:36 | Outpatient (AMB) | payer BC, SELFPAY ==
[2025-03-27 14:00] VITALS: BP 119/79; PULSE 94; RESP 18; TEMP 36.2; O2SAT 96; BMI 28.2
--- NOTE | 2025-03-27 14:00 | OBCLNT_ITS ---
Vital Signs 03/27/25 14:00 Height 1.47 m Height Method Stated Weight 61.008 kg Weight Measurement Method Standing Scale BMI 28.2 BP 119/79 Blood Pressure Source Automatic Cuff Blood Pressure Location Left Upper Arm Position Sitting Respiration 18 Pulse 94 Pulse Source Monitor Temp 97.2 F Temp Source Oral Pulse Oximetry (%) 96 Oxygen Delivery Method Room Air Allergies/Home Meds Allergies & Medications Allergies No Known Allergies Allergy (Verified 03/27/25 14:02) Medication Reconciliation vits no.126-ferrous fum 28 mg iron-folic acid 800 mcg tablet (Classic ) tab PO 11/10/24 [History Confirmed 03/27/25] blood sugar diagnostic (Blood Glucose Test strips) #10 ea 03/14/25 [Rx Confirmed 03/27/25] blood-glucose meter #1 ea 03/14/25 [Rx Confirmed 03/27/25] lancets #100 ea 03/14/25 [Rx Confirmed 03/27/25] Immunizations Immunizations Flu Vaccine in the Last 12 Months: No Flu Vaccine Exclusion Criteria: No Exclusion Criteria Care OB Visit Log OB Flowsheet Initial Weight: 53 kg Date -?-?-?-?-?-?-?-?-?-?-?-?- EGA Weight BP Alb Glu CTX Pres Fundal ht FHR Mov Dilation Station Effacement Hx Notes Visit Note 10/04/24 -?-?-?-?-?-?-?-?-?-?-?-?- 9w 6d 53.24 kg (+240.404 g) 113/76 10 154 New OB. Patient just had a Pap. Labs and official ultrasound ordered. Patient desires NIPT. 11/10/24 -?-?-?-?-?-?-?-?-?-?-?-?- 15w 1d 54.091 kg (+1090.89 g) 116/75 15 132 absent No vaginal bleeding no cramping. labs reviewed. Declined NIPT. Will have level 2 ultrasound. 12/11/24 -?-?-?-?-?-?-?-?-?-?-?-?- 19w 4d 56.245 kg (+3245.454 g) 119/73 unknown 19 145 active No vaginal bleeding or loss of fluids. Patient feels flutters Has level 2 ultrasound scheduled later this week. Will have a gender reveal. Will place gender in an envelope. 01/12/25 -?-?-?-?-?-?-?-?-?-?-?-?- 24w 1d 57.323 kg (+4322.736 g) 118/76 24 134 active No bleeding or loss of fluids. No pressure. Ordered GCT. 02/09/25 -?-?-?-?-?-?-?-?-?-?-?-?- 28w 1d 59.08 kg (+6080.406 g) 104/69 unknown 28 145 active No VB or LOF. Good FM Severe right carpal tunnel. WEaring brace. Referred to Jennifer Duron OT, Dash PT. 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 duty is not working for her at the same time she also has carpal tunnel syndrome on her right arm and is using a cast for help she had a prior baby at 37 weeks so she is at high risk for delivery and will be placed on disability for the rest of the follow up in 2 weeks 03/13/25 -?-?-?-?-?-?-?-?-?-?-?-?- 32w 5d 60.101 kg (+7100.989 g) 113/78 cephalic 32 139 active 32.5 weeks today 03/27/25 -?-?-?-?-?-?-?-?-?-?-?-?- 34w 5d 61.008 kg (+8008.173 g) 119/79 cephalic 35 133 active KI Calculator Estimated Delivery Date Method Current WG Current Estimate 05/03/25 LMP (Certain) 35w 4d Other Estimates 04/30/25 Ultrasound #1 36w 0d Expected Delivery Route/Plan -0-0-1 x one 9 years ago (a girl) Last baby 6 lbs 3 oz and rapid labor, about 2 hours from when she was admitted to the hospital. No time for epidural. New FOB this [facility] Labs: A+/Ab-/RI/RPR NR/HIV-/HepC-/HepBSag-/GC-/Chlam- /Urine cx-/Done at [facility] Elevated GCT 143 (01/15) at [facility]. Ordered GTT. Pt aware Specific Issue/Plans AMA: Declines NIPT For level 2 ultrasound Level II US WNL Found out this baby is a boy Notes Visit Date: 03/27/25 Last Updated by: Blanca Nash MD 34 years at 34.5 weeks /GDM , started sugar log> 75 % are in target and fastings ae well controlled <90 and most of post prandials are <130 MFM US done 03/14/2025 c/w appropriate growth by Dr Arthur at 76th percentile /follow up in 2 weeks and Kick count/ labor precautions /GBS next visit Visit Date: 03/13/25 Last Updated by: Blanca Nash MD 3 hour GTT c/w GDM and she is going to start keeping a sugar log declines flu vaccine / follow up in 2 to 2.5 weeks Glucometer supplies and glucometer called in Dietary advice given Visit Date: 02/09/25 Last Updated by: Gracie Kline ([facility])MD Severe carpal tunnel. Works as a labeling machine operator. Hard to pipelle and do experiments. Note written for accommodations. Wearing a brace. Refer to Hand OT in [place]. Visit Date: 01/12/25 Last Updated by: Gracie Kline ([facility])MD Ultrasound Dr. Arthur 12/19/2024 reviewed with patient, performed for AMA. Normal level 2 ultrasound. Baby is 63rd percentile EDC by ultrasound 05/05/2025. 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 This is his first baby. He is a golf pro at the [employer]. Office Procedures OBC Clinic LOC & Office Proc's Nursing/Assessment Patient Status: Established Patient OB Clinic Nursing Assessment: Medication Reconciliation, Update PMH in EMR and Vital Signs OB Clinic Coordination of Care: Consent,records obtained, informed consent, Education Simp Pt/Fam, Lab and Imaging orders, Results/Orders obtained and Staff clarify orders Special Needs: Heart tones Established Patient Charge Established Patient Point Assignment: 110 Established Patient Point Charge: EP Level 3 (80-115) Assessment & Plan Diagnosis / Problem List (1) GDM (gestational diabetes mellitus), class A1: Status: Acute (2) AMA (advanced maternal age) multigravida 35+: Status: Acute Qualifiers: Trimester: first trimester Qualified Code(s): O09.521 - Supervision of elderly multigravida, first trimester Plan continue sugar log /Diet and follow up in 2 weeks/ GBS next visit/ refused vaccinations
== END 2025-03-27 14:34 | disposition home or self-care (01) ==
LOC: HODSOBC 13:36
PROVIDERS: Supervising Provider Obstetrics & Gynecology; Visit Provider Obstetrics & Gynecology
DX: O09.523 Supervision of elderly multigravida, third trimester (principal); O09.893 Supervision of other high risk pregnancies, third trimester; O24.410 Gestational diabetes mellitus in pregnancy, diet controlled; Z3A.34 34 weeks gestation of pregnancy
CPT/HCPCS: 99213; G0463

== ENCOUNTER 2025-04-14 17:39 | Observation (INO) | payer BC, SELFPAY ==
[2025-04-14] VITALS (9 sets, daily range): BP systolic 124–127; BP diastolic 74–90; PULSE 96–106; RESP 16–97; TEMP 36.7; O2SAT 98–99; BMI 29.9
== END 2025-04-14 19:49 | disposition home or self-care (01) ==
PROVIDERS: Admitting Provider Obstetrics & Gynecology; Visit Provider Obstetrics & Gynecology
DX: O47.1 False labor at or after 37 completed weeks of gestation (principal); Z3A.37 37 weeks gestation of pregnancy
CPT/HCPCS: 59025; 59899

== ENCOUNTER 2025-04-17 13:00 | Outpatient (AMB) | payer BC, SELFPAY ==
[2025-04-17 13:08] VITALS: BP 122/80; PULSE 100; RESP 18; TEMP 36.2; O2SAT 98
--- NOTE | 2025-04-17 13:08 | AMB.OBPNC ---
Vital Signs 04/17/25 13:08 Weight 63.106 kg Weight Measurement Method Standing Scale BP 122/80 Blood Pressure Source Automatic Cuff Blood Pressure Location Left Upper Arm Position Sitting Respiration 18 Pulse 100 Pulse Source Monitor Temp 97.2 F Temp Source Oral Pulse Oximetry (%) 98 Oxygen Delivery Method Room Air Allergies/Home Meds Allergies & Medications Allergies No Known Allergies Allergy (Verified 04/17/25 13:09) Medication Reconciliation vits no.126-ferrous fum 28 mg iron-folic acid 800 mcg tablet (Classic ) 1 tab PO QDAY 11/10/24 [History Confirmed 04/17/25] blood sugar diagnostic (Blood Glucose Test strips) #10 ea 03/14/25 [Rx Confirmed 04/17/25] blood-glucose meter #1 ea 03/14/25 [Rx Confirmed 04/17/25] lancets #100 ea 03/14/25 [Rx Confirmed 04/17/25] Immunizations Immunizations Flu Vaccine in the Last 12 Months: Yes Flu Vaccine Exclusion Criteria: Already Received Care OB Visit Log OB Flowsheet Initial Weight: 53 kg Date <del>?</del> EGA Weight BP Alb Glu CTX Pres Fundal ht FHR Mov Dilation Station Effacement Hx Notes Visit Note 10/04/24 <del>?</del> 9w 6d 53.24 kg (+240.404 g) 113/76 10 154 New OB. Patient just had a Pap. Labs and official ultrasound ordered. Patient desires NIPT. 11/10/24 <del>?</del> 15w 1d 54.091 kg (+1090.89 g) 116/75 15 132 absent No vaginal bleeding no cramping. labs reviewed. Declined NIPT. Will have level 2 ultrasound. 12/11/24 <del>?</del> 19w 4d 56.245 kg (+3245.454 g) 119/73 unknown 19 145 active No vaginal bleeding or loss of fluids. Patient feels flutters Has level 2 ultrasound scheduled later this week. Will have a gender reveal. Will place gender in an envelope. 01/12/25 <del>?</del> 24w 1d 57.323 kg (+4322.736 g) 118/76 24 134 active No bleeding or loss of fluids. No pressure. Ordered GCT. 02/09/25 <del>?</del> 28w 1d 59.08 kg (+6080.406 g) 104/69 unknown 28 145 active No VB or LOF. Good FM Severe right carpal tunnel. WEaring brace. Referred to Jennifer Duron OT, Brian PT. 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 duty is not working for her at the same time she also has carpal tunnel syndrome on her right arm and is using a cast for help she had a prior baby at 37 weeks so she is at high risk for delivery and will be placed on disability for the rest of the follow up in 2 weeks 03/13/25 <del>?</del> 32w 5d 60.101 kg (+7100.989 g) 113/78 cephalic 32 139 active 32.5 weeks today 03/27/25 <del>?</del> 34w 5d 61.008 kg (+8008.173 g) 119/79 cephalic 35 133 active 04/17/25 <del>?</del> 37w 5d 63.106 kg (+10.106 kg) 122/80 cephalic 39 145 active - She reports experiencing contractions and was hospitalized Wednesday night for evaluation. - Contractions started at 10-12 minute intervals in the morning - Cervical examination showed 1.5-2 cm dilation - Was discharged home after repeat examination showed no further progression - Since discharge, she has been noticing mucus discharge, which she attributes to losing her mucus plug. - She continues to experience contractions to this day. - Patient reports adherence to diet-controlled diabetes management. - Checks blood sugars at home regularly - Fasting glucose levels range from 70-80 mg/dL, staying below 100 mg/dL - Post-meal glucose levels vary, sometimes reaching 90 mg/dL but can be higher depending on food intake - Highest recorded glucose was 157 mg/dL after eating chocolate - Has made dietary modifications including switching to brown rice - Denies ever having glucose levels above 180 mg/dL - GBS swab performed - Cervical examination completed - patient remains 2 cm dilated - Continue diet-controlled diabetes management with home glucose monitoring - Induction scheduled at 39 weeks due to A1GDM - Follow-up appointment in one week with Dr. Nash - Patient advised to return to labor and delivery for any contractions or concerns - Patient instructed to stay active and walk KI Calculator Estimated Delivery Date Method Current WG Current Estimate 05/03/25 LMP (Certain) 38w 0d Other Estimates 04/30/25 Ultrasound #1 38w 3d Expected Delivery Route/Plan -0-0-1 x one 9 years ago (a girl) Last baby 6 lbs 3 oz and rapid labor, about 2 hours from when she was admitted to the hospital. No time for epidural. New FOB this [facility] Labs: A+/Ab-/RI/RPR NR/HIV-/HepC-/HepBSag-/GC-/Chlam- /Urine cx-/Done at [facility] Elevated GCT 143 (01/15) at [facility]. Ordered GTT. Pt aware Specific Issue/Plans AMA: Declines NIPT For level 2 ultrasound Level II US WNL Found out this baby is a boy Notes Visit Date: 03/27/25 Last Updated by: Blanca Nash MD 34 years at 34.5 weeks /GDM , started sugar log> 75 % are in target and fastings ae well controlled <90 and most of post prandials are <130 MFM US done 03/14/2025 c/w appropriate growth by Dr Arthur at 76th percentile /follow up in 2 weeks and Kick count/ labor precautions /GBS next visit Visit Date: 03/13/25 Last Updated by: Blanca Nash MD 3 hour GTT c/w GDM and she is going to start keeping a sugar log declines flu vaccine / follow up in 2 to 2.5 weeks Glucometer supplies and glucometer called in Dietary advice given Visit Date: 02/09/25 Last Updated by: Gracie Kline ([facility])MD Severe carpal tunnel. 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 Note written for accommodations. Wearing a brace. Refer to Hand OT in [place]. Visit Date: 01/12/25 Last Updated by: Gracie Kline ([facility] Clinic)MD Ultrasound Dr. Arthur 12/19/2024 reviewed with patient, performed for AMA. Normal level 2 ultrasound. Baby is 63rd percentile EDC by ultrasound 05/05/2025. 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 This is his first baby. He is a golf pro at the [employer]. Office Procedures OBC Clinic LOC & Office Proc's Nursing/Assessment Patient Status: Established Patient OB Clinic Nursing Assessment: Medication Reconciliation, Update PMH in EMR and Vital Signs OB Clinic Coordination of Care: Complex Care and Chronic Disease 1-5, Consent,records obtained, informed consent, Education Simp Pt/Fam, Lab and Imaging orders, Results/Orders obtained and Staff clarify orders Special Needs: Heart tones Miscellaneous Interventions: Pelvic Comp w/OB cult Established Patient Charge Established Patient Point Assignment: 150 Established Patient Point Charge: EP Level 4 (120-155) Assessment & Plan Diagnosis / Problem List (1) GDM (gestational diabetes mellitus), class A1: Status: Acute (2) AMA (advanced maternal age) multigravida 35+: Status: Acute Qualifiers: Trimester: first trimester Qualified Code(s): O09.521 - Supervision of elderly multigravida, first trimester Plan Problem List - Gestational diabetes mellitus, diet controlled - Advanced maternal age - at 37 weeks and 5 days gestation Assessment 35-year-old at 37 weeks 5 days gestation with A1GDM and advanced maternal age presenting for routine visit. Patient reports recent hospital admission Wednesday night for contractions occurring every 10-12 minutes, found to be 1.5-2 cm dilated at that time. Currently remains 2 cm dilated with head engaged low in pelvis. Patient reports passage of mucus plug since hospital discharge, likely related to cervical examinations. A1GDM appears well-controlled on diet therapy with fasting glucose levels 70-80 mg/dL and post-prandial levels generally acceptable, with highest recorded level of 157 mg/dL after consuming chocolate. heart rate 138 bpm, which is normal. Patient is in latent phase of labor with cervical dilation of 2 cm and low station. Plan - GBS swab performed - Cervical examination completed - patient remains 2 cm dilated - Continue diet-controlled diabetes management with home glucose monitoring - Induction scheduled at 39 weeks due to A1GDM - Follow-up appointment in one week with Dr. aNsh - Patient advised to return to labor and delivery for any contractions or concerns - Patient instructed to stay active and walk 1. Progress Reviewed gestational age (37 weeks 5 days), growth, and heart rate (138 bpm, normal). Planned frequent visits (every 2 weeks until 36 weeks, then weekly). 2. Instructed patient to monitor movements and report decreases immediately. 3. Testing Counseled on routine third-trimester labs per guidelines. Discussed potential need for ultrasound or monitoring based on risk factors. 4. Preeclampsia Precaution Educated on preeclampsia signs: severe headache, vision changes, right upper quadrant pain, sudden swelling. Advised urgent reporting of symptoms and discussed blood pressure monitoring if high risk. 5. Labor Precautions Reviewed labor signs: regular contractions, pelvic pressure, back pain, bleeding, or fluid leakage. Instructed to seek immediate care for these symptoms. 6. Lifestyle and Delivery Preparation Reinforced vitamins, nutrition, and safe activity. Discussed plan, pain management, and . Advised on labor preparation (e.g., hospital bag) and expectations. 7. Psychosocial Support Assessed emotional well-being and offered resources for mental health or parenting support.
== END 2025-04-17 13:28 | disposition home or self-care (01) ==
LOC: HODSOBC 13:00
PROVIDERS: Supervising Provider Obstetrics & Gynecology; Visit Provider Obstetrics & Gynecology
DX: O09.893 Supervision of other high risk pregnancies, third trimester (principal); O24.410 Gestational diabetes mellitus in pregnancy, diet controlled; O09.523 Supervision of elderly multigravida, third trimester; Z3A.37 37 weeks gestation of pregnancy; Z36.85 Encounter for antenatal screening for Streptococcus B
CPT/HCPCS: 99214; G0463

== ENCOUNTER 2025-04-21 10:37 | Outpatient (CLI) | payer BC, SELFPAY ==
[2025-04-21 10:46] VITALS: BP 134/85; PULSE 93; RESP 18; RESP 99; TEMP 36.7
--- NOTE | 2025-04-21 10:46 | XR_ITS ---
EXAMINATION: age Limited TECHNIQUE: Limited transabdominal sonographic images pelvis Date and time: April 21, 2025, 1121 hours INDICATIONS: Gas exposure to the patient today, wellbeing FINDINGS: Viable intrauterine gestation cephalic presentation Amniotic fluid index 9.9 cm Estimated age 37 weeks 0 days Estimated weight 2891 g IMPRESSION: Viable intrauterine gestation cephalic presentation Cardiac motion 158 bpm
[2025-04-21 11:00] VITALS: PULSE 91; O2SAT 98
[2025-04-21 11:01] VITALS: BP 134/85; PULSE 93
[2025-04-21 11:05] VITALS: PULSE 95; O2SAT 99
[2025-04-21 11:10] VITALS: PULSE 95; O2SAT 98
[2025-04-21 11:15] VITALS: PULSE 86; O2SAT 98
== END 2025-04-21 11:50 | disposition home or self-care (01) ==
LOC: S4S1 10:38 → S4SX 10:39
PROVIDERS: Referring Provider Obstetrics & Gynecology; Visit Provider Obstetrics & Gynecology
DX: Z34.83 Encounter for supervision of other normal pregnancy, third trimester (principal); Z3A.37 37 weeks gestation of pregnancy
CPT/HCPCS: 59025; 76815

== ENCOUNTER 2025-04-21 11:49 | Emergency (ER) | payer BC, SELFPAY ==
[2025-04-21 11:53] VITALS: BMI 29.0
--- NOTE | 2025-04-21 12:01 | PC.NURSE ---
Addendum entered by Carlito Michael RN 04/21/25 13:54: SPOKE TO IRA FROM POISON CONTROL A THIS TIME AND MADE AWARE THAT PT'S CARBOXYHEMOGLOBIN LEVEL IS 3.4. PER IRA, NO OTHER TREATMENT NECESSARY AT THIS TIME. OK FOR PT TO BE CLEARED. Original Note: SPOKE TO MOISES FROM POISON CONTROL; PER, WE ARE GONNA BE MORE CONSERVATIVE WITH PTS; SINCE PT IS DENYING HEADACHE, DIZZINESS, AND PT DOES NOT HAVE ALTERED MENTAL STATUS. CHECK CAROXYHEMOGLOBIN LEVEL AT THIS TIME. IF ELEVATED, CALL US BACK. WE WILL. PT ALREADY RECEIVED CLEARANCE FROM OB.
[2025-04-21 12:14] VITALS: BP 128/86; PULSE 91; RESP 18; TEMP 37; O2SAT 99
--- NOTE | 2025-04-21 13:13 | PD.EDADULT ---
ED General RME/HPI General Chief complaint: General Adult/Misc Complain Stated complaint: CO POISONING POSS. SINCE WEDNESDAY; 38 WKS OB Time Seen by Provider: 04/21/25 11:56 Arrival date/time: 04/21/25 11:49 This is a 34-year-old female that comes into the emergency room with possible carbon monoxide poisoning. Per patient and family family member was trying to fix a possible leak on the roof and covered it with a tarp. In the event for that heater apparently was plugged and it was going into the house. Patient states that the gas company was at her house and they said the levels in the house for about 50 PPI or PSI patient does not know which one it was but level was high. Patient has no complaints patient denies headache, dizziness, altered mental status. Patient states she is approximately 38 weeks and is due to be induced next week. Patient went to OB first to check on the baby and according to staff and patient baby looked okay. nurses note from poison control: SPOKE TO MOISES FROM POISON CONTROL; PER, WE ARE GONNA BE MORE CONSERVATIVE WITH PTS; SINCE PT IS DENYING HEADACHE, DIZZINESS, AND PT DOES NOT HAVE ALTERED MENTAL STATUS. CHECK CAROXYHEMOGLOBIN LEVEL AT THIS TIME. IF ELEVATED, CALL US BACK. WE WILL. PT ALREADY RECEIVED CLEARANCE FROM OB. Related Data Home Medications ?Medication ?Instructions ?Recorded ?Confirmed vits no.126-ferrous fum 1 tab PO QDAY 11/10/24 04/29/25 28 mg iron-folic acid 800 mcg tablet (Classic ) Previous Rx's ?Medication ?Instructions ?Recorded docusate sodium 100 mg capsule 100 mg PO BID 10 days #20 caps 04/30/25 hydrocodone 5 mg-acetaminophen 325 1 tab PO Q6H PRN Patient rated 04/30/25 mg tablet pain 7 to 8 7 days #12 tabs ibuprofen 800 mg tablet 800 mg PO Q8HR 10 days #30 tabs 04/30/25 labetalol 100 mg tablet 100 mg PO BID #30 tabs 05/02/25 labetalol 100 mg tablet 300 mg (3 x 100 mg) PO TID #20 tabs 05/04/25 nifedipine 30 mg tablet,extended 30 mg PO QDAY #14 tabs 05/04/25 release 24 hr Allergies Allergy/AdvReac Type Severity Reaction Status Date / Time No Known Allergies Allergy Unverified 05/04/25 11:44 Review of Systems Review of Systems Systems Reviewed: All systems reviewed, normal except as documented Past Medical History Past Medical History Comments PMH COMMENT: Denies ED Exam Narrative Physical exam: VITAL SIGNS: Reviewed. GENERAL APPEARANCE: Alert and interactive, follows commands, no acute distress, HEAD AND FACE: Non-traumatic. ENT: PERRL, conjuctiva pink and clear, eyelid no trauma, Mucous membrane moist. NECK: Supple, nontender, no nuchal rigidity. CHEST: No tenderness, no crepitus, no paradoxical movement, no retractions. LUNGS: Clear, well ventilated, symmetric, no rales, no wheezing, no rhonchi, no stridor, good breath sounds bilaterally. HEART: Regular rate, regular rhythm, no murmur, no gallops. ABDOMEN: Soft, protuberant appears to be NEUROLOGICAL: Gross motor function intact sensory function intact, Appropriate for age. MUSCULOSKELETAL: low back nontender, full range of motion. EXTREMITIES: No redness no swelling no skin breakdown on bilateral foot and leg. Distal neurovascular status intact bilateral foot SKIN: Color pink, dry, no rash, no lacerations, no abrasions, no contusions. Course Quality Measures none Orders Category Date Time Status Carbon Monoxide [Carboxyhemoglobin] Stat Lab 04/21/25 13:23 Completed Vital Signs Vital signs: Vital Signs Temperature 98.6 F 04/21/25 12:14 Pulse Rate 91 04/21/25 12:14 Respiratory Rate 18 04/21/25 12:14 Blood Pressure 128/86 H 04/21/25 12:14 Pulse Oximetry (%) 99 04/21/25 12:14 Oxygen Delivery Method Room Air 04/21/25 12:14 Discharge Plan Plan Patient Disposition: HOME (Self Care) Patient condition on transfer: Stable Prescriptions/Referrals Prescriptions/Med Rec: No Action Classic 28 mg iron- 800 mcg tablet 1 tab PO QDAY hydrocodone-acetaminophen 5-325 mg Tablet 1 tab PO Q6H MDD 4 tablets PRN (Reason: Patient rated pain 7 to 8) 7 Days Qty: 12 0RF docusate sodium 100 mg Capsule 100 mg PO BID 10 Days Qty: 20 0RF ibuprofen 800 mg tablet 800 mg PO Q8HR 10 Days Qty: 30 0RF labetalol 100 mg tablet 100 mg PO BID Qty: 30 0RF labetalol 100 mg Tablet 300 mg PO TID Qty: 20 0RF nifedipine 30 mg Tablet Extended Release 24hr 30 mg PO QDAY Qty: 14 0RF Referrals: Staci Alba MD [Primary Care Provider, Family Practice] - In 1 week Problem List Clinical Impression: Accidental poisoning by carbon monoxide, Patient/Caregiver Discharge Instructions Discharge Activity: activity as tolerated Education Materials: Carbon Monoxide Poisoning Additional Instructions: Follow up with primary provider in 1-2 days. Come back to ED if symptoms change or worsen. Keep scheduled appointment with [employer] Print Language: Moldovan Stand Alone Forms: Reba Award Info., Patient Portal Info Letter PA/CONTAINER PACKER OPERATOR Supervising Physician PA/CONTAINER PACKER OPERATOR Supervising Physician: robert MCKEON Narrative MDM hospital course (for use when minimal MDM required): Poison control was contacted and recommended a carboxyhemoglobin level and they want to be informed of its elevated. Patient was already seen in OB and baby was clear. patient has no other complaints at this time. Levels came back. Patient has no complaints at this time. I spoke to patient at length. Patient feels comfortable going home at this time. Patient told to come back to the emergency room if symptoms change or worsen. Patient verbalizes plan of care. I have greeted and performed a focused initial assessment of this patient. Initial appropriate labs ordered at this time. A comprehensive ED assessment and evaluation of the patient and analysis of all test and completion of medical decision making process will be conducted by additional ED provider. Clinical Information Provided by: patient Medical Records reviewed [facility] Meds/Rx considered, not ordered None Labs/Rad/Tests considered, not ordered None Chronic Illness/Social Conditions which may negatively complicate care or outcome(s)-explain: None or not applicable Labs Labs: see narrative above Medication Administration(s) none
[2025-04-21 13:33] LABS: Carboxyhemoglobin 3.4 % (0.5-1.5)
== END 2025-04-21 15:01 | disposition home or self-care (01) ==
PROVIDERS: Nurse Practitioner Family; Emergency Provider Emergency Medicine; PCP Family Medicine
DX: O9A.213 Injury, poisoning and certain other consequences of external causes complicating pregnancy, third trimester (principal); T58.91XA Toxic effect of carbon monoxide from unspecified source, accidental (unintentional), initial encounter; Z3A.38 38 weeks gestation of pregnancy
CPT/HCPCS: 82375; 99284